=== PATIENT | female | born 1975 | race Caucasian/White ===

== ENCOUNTER → 2016-02-13 | Outpatient (CLI) | payer MEDICAID ==
[~2016-02-13] MED LIST: ATROPINE SULFATE5 ML OP; COMBIGAN 0.2%-0.5 ML OS; DUREZOL 5 ML5 ML OS; HALDOL 2MG T2 MG/TAB PO; INDERAL 20MG20 MG PO; KLONOPIN 1MG1 MG PO; NORCO 325 MG-51 TAB PO; PROAIR HFA0.09 MG/AC IH
== END ==
LOC: BHSO 13:41
DX: F25.0 Schizoaffective disorder, bipolar type (principal)

== ENCOUNTER → 2016-04-01 | Outpatient (CLI) | payer MEDICAID | LOC: BHSO 10:50 | DX: F25.0 Schizoaffective disorder, bipolar type (principal) ==